=== PATIENT | female | born 1950 | race Two or more races ===

== ENCOUNTER → 2019-05-30 | Day surgery (SDC) | payer OTHER ==
[~2019-05-30] MED LIST: FENTANYL CITRATE/PF 100MCG/2 ML INJ ONE; MIDAZOLAM HCL 2 MG/2 ML VIAL ONE; OR PHACO EYE KIT ONE; PREOP PHACO EYE KIT ONE; PRESERVISION T1 EACH PO
[2019-05-30 13:30] VITALS: BP 122/68
--- OUTSIDE RECORDS SUMMARY | 2019-05-30 15:29 | XMS REPORT ---
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
--- OUTSIDE RECORDS SUMMARY | 2019-05-30 15:29 | XMS REPORT | Continuity of Care Document ---
Author Author [facility] Organization [employer] Address Unknown Phone Unavailable Care Team Providers Care Slab Tripper Name Role Phone [email or web address] Unavailable Unavailable Problems Problem Status Onset Date Classification Date Reported Comments Source Nocturia Active Problem 11/03/2018 [facility] Urine frequency Active Problem 11/03/2018 [facility] Abnormal urine Active Problem 11/03/2018 [facility] Pterygium of right eye Active Problem 05/05/2019 [facility] Encntr for general adult medical exam w/o abnormal findings Active Diagnosis 05/05/2019 [facility] Screening for colon cancer Active Diagnosis 05/05/2019 [facility] Screening for breast cancer Active Diagnosis 05/05/2019 [facility] Screening for osteoporosis Active Diagnosis 05/05/2019 [facility] Medications Medication Details Route Status Patient Instructions Ordering Provider Order Date Source Multivitamin Adult as directed Orally Active - Orally Jorge [facility] Allergies, Adverse Reactions, Alerts Substance Category Reaction Severity Reaction type Status Date Reported Comments Source N.K.D.A. Adverse Reaction Info Not Available Adverse Reaction Active 05/04/2019 [facility] Immunizations No Data Provided for This Section Results No Data Provided for This Section Pathology Reports No Data Provided for This Section Diagnostic Reports No Data Provided for This Section Consultation Notes No Data Provided for This Section Discharge Summaries No Data Provided for This Section History and Physicals No Data Provided for This Section Vital Signs Vital Sign Value Date Comments Source Weight 93.6 05/04/2019 [facility] Height 62 05/04/2019 [facility] Heart Rate 68 05/04/2019 [facility] Diastolic (mm Hg) 72 05/04/2019 [facility] Systolic (mm Hg) 98 05/04/2019 [facility] Encounters No Data Provided for This Section Procedures No Data Provided for This Section Assessment and Plan No Data Provided for This Section Plan of Care No Data Provided for This Section Social History No Data Provided for This Section Family History No Data Provided for This Section Advance Directives No Data Provided for This Section Functional Status No Data Provided for This Section
--- OUTSIDE RECORDS SUMMARY | 2019-05-30 15:29 | XMS REPORT ---
Author Author Edith Ge Organization [employer] Address Unknown Phone Unavailable Care Team Providers Care Manager Qa Name Role Phone Edith Ge CP Unavailable Allergies No Known Allergies Problems Problem Type Condition Code Onset Dates Condition Status Problem Nocturia R35.1 Active Problem Urine frequency R35.0 Active Problem Abnormal urine R82.90 Active Problem Pterygium of right eye H11.001 Active Medications No Known Medications Results No Known Results Summary Purpose [employer] Submission
== END | disposition home or self-care (01) ==
LOC: OR 15:26
PROVIDERS: ATTEND Ophthalmology
DX: H25.12 Age-related nuclear cataract, left eye (principal); Z86.2 Personal history of diseases of the blood and blood-forming organs and certain disorders involving the immune mechanism
CPT/HCPCS: 66984; J2250; J3010; V2632

== ENCOUNTER → 2019-06-05 | Day surgery (SDC) | payer OTHER ==
--- OUTSIDE RECORDS SUMMARY | 2019-06-05 05:24 | XMS REPORT | Continuity of Care Document ---
Author Author [employer] Organization [employer] Address Unknown Phone Unavailable Care Team Providers Care Quality Control Assessor Name Role Phone [employer] Unavailable Unavailable Problems Problem Status [...]
[2019-06-05 08:15] VITALS: BP 117/66
== END | disposition home or self-care (01) ==
LOC: OR 05:21
PROVIDERS: ATTEND Ophthalmology
DX: H25.11 Age-related nuclear cataract, right eye (principal)
CPT/HCPCS: 66984; J2250; J3010; V2632

== ENCOUNTER 2020-07-26 17:29 | Day surgery (SDC) | payer OTHER ==
[~2020-07-26] VITALS: Ht 157.5 cm; Wt 59.0 kg
[~2020-07-26 17:29] MED LIST changes: +DEXAMETHASONE SOD PHOS INJ 4 MG/ML VIAL ONE; -FENTANYL CITRATE/PF 100MCG/2 ML INJ ONE; +KETOROLAC TROMETHAMINE 30 MG/ML VIAL ONE; +LIDOCAINE HCL 2% LOCAL INJ 5 ML SDV VIAL INJ ONE; -MIDAZOLAM HCL 2 MG/2 ML VIAL ONE; +ONDANSETRON HCL INJ 2MG/ML 2ML 2 MG/ML VIAL ONE; -OR PHACO EYE KIT ONE; -PREOP PHACO EYE KIT ONE; +PROPOFOL IV EMULSION 10 MG/ML 20 ML VIAL ONE; +ROCURONIUM BROMIDE 10 MG/ML 5ML VIAL IV ONE; +SEVOFLURANE INHAL SOLN 250 ML PEN BTL ONE; +SUCCINYLCHOLINE CHLORIDE 20 MG/ML 10ML VIAL ONE
--- NOTE | 2020-07-26 18:32 | Emergency Department Note ---
History of Present Illnes History of Present Illness Chief Complaint: General Medicine Complaints History of Present Illness This is a 69 year old Other female Chief Complaint Comment PT CAME IN FOR C/O THROAT PAIN, PT STATES THAT SHE FEELS A "FISH BONE" IS STUCK IN HER THROAT, PT STATES THAT SHE WAS EATING FISH SOUP AROUND 1330. Historian: Patient Arrival Mode: Car Technology Infusion Specialist Required: No Onset (how long ago): hour(s) (5) Location: Throat Quality: Sharp Radiation: Reports non-radiation Severity: mild Onset quality: sudden Duration (how long): day(s) (5) Timing of current episode: constant Progression: unchanged Chronicity: new Context: Denies recent illness, Denies recent surgery Relieving factors: none Exacerbating factors: none Associated symptoms: Reports denies other symptoms Treatments prior to arrival: none Past Medical/Family History Physician Review I have reviewed the patient's past medical and family history. Any updates have been documented here. Past Medical History Recent Fever: No Clinical Suspicion of Infectio: No New/Unexplained Change in Ment: No Past Medical History: None Past Surgical History: None Other Any Pre-Existing Lines (PICC,: Yes Review of Systems Review of Systems Constitutional: Reports no symptoms EENTM: Reports as per HPI Cardiovascular: Reports no symptoms Respiratory: Reports no symptoms Gastrointestinal: Reports as per HPI Genitourinary: Reports no symptoms Musculoskeletal: Reports no symptoms Integumentary: Reports no symptoms Neurological: Reports no symptoms Psychological: Reports no symptoms Endocrine: Reports no symptoms Hematological/Lymphatic: Reports no symptoms Physical Exam Related Data Allergies: Coded Allergies: No Known Allergies (Unverified , 05/28/19) Triage Vital Signs Vital Signs Date Time Temp Pulse Resp B/P (MAP) Pulse Ox O2 Delivery O2 Flow Rate FiO2 07/26/20 17:41 98.1 82 18 163/76 100 Room Air Vital signs reviewed: Yes Physical Exam CONSTITUTIONAL Constitutional: Present well-developed, Present well-nourished HENT HENT: Present normocephalic, Present atraumatic, Present oropharynx clear/moist, Present nose normal, Present other (Tolerating secretiong, able to swallow liquids) HENT L/R: Present left ext ear normal, Present right ext ear normal EYES Eyes: Reports PERRL, Reports conjunctivae normal NECK Neck: Present ROM normal PULMONARY Pulmonary: Present effort normal, Present breath sounds normal CARDIOVASCULAR Cardiovascular: Present regular rhythm, Present heart sounds normal, Present capillary refill normal, Present normal rate GASTROINTESTINAL Abdominal: Present soft, Present nontender, Present bowel sounds normal GENITOURINARY Genitourinary: Present exam deferred SKIN Skin: Present warm, Present dry MUSCULOSKELETAL Musculoskeletal: Present ROM normal NEUROLOGICAL Neurological: Present alert, Present oriented x 3, Present no gross motor or sensory deficits PSYCHOLOGICAL Psychological: Present mood/affect normal, Present judgement normal Results Imaging Imaging results reviewed: Yes Procedures 12 Lead ECG Interpretation ECG Interpretation : Date: Jul 26, 2020 Rhythm: sinus rhythm Rate: normal QRS axis: normal ST segments normal: Yes T waves normal: Yes Clinical Impression: non-specific ECG Assessment & Plan Medical Decision Making MDM 69-year-old female presents for feelings of fish bone stuck in her esophagus. Examination shows overall well-appearing female in no acute distress, vital signs stable, within limits. CT neck shows no esophageal foreign body but does note a radio opaque 2 mm likely foreign body but in vocal cords. Call doctor Benita Ross for scope to which he agrees. Patient is appropriate for transfer to OR. Reassessment Reassessment time: 18:32 Reassessment Well appearing, NAD Assessment & Plan Final Impression: (1) Inhaled foreign object Depart Disposition: ADMITTED Last Vital Signs Date Time Temp Pulse Resp B/P (MAP) Pulse Ox O2 Delivery O2 Flow Rate FiO2 07/26/20 17:41 98.1 82 18 163/76 100 Room Air Home Meds Reported Medications Beta Carotene (PRESERVISION TABLET) 1 Each Tab, 1 TAB PO BID 05/28/19 NICKY WEST MD Jul 26, 2020 18:32
--- NOTE | 2020-07-26 20:44 | Diagnostic Imaging Report ---
History: Throat pain, rule out foreign body. Possible fishbone stuck in her throat. Comparison studies: None Technique: Axial images were obtained from the skull base to the thoracic inlet. Coronal and sagittal images reconstructed from the axial data. Dose modulation, iterative reconstruction, and/or weight based adjustment of the mA/kV was utilized to reduce the radiation dose to as low as reasonably achievable. Intravenous contrast: None Findings: Evaluation of the neck is limited due to the absence of intravenous contrast. In spite of this limitation, Soft tissues: 2 mm thin, linear radiopaque density in the anterior commissure of the larynx, just posterior to the thyroid cartilage may either represent radiopaque foreign body or volume average artifact from focal calcification of the thyroid cartilage. Sclerosis of the adenoids and cricoid, are physiological. Lymph nodes: No radiographically significant adenopathy. Vessels: Cannot evaluate. Glands (thyroid, parotid and submandibular): Normal in size and symmetric. No masses. Orbits: No abnormalities. Paranasal sinuses: Clear. Temporal bones: No abnormalities. Skull base and facial bones: Intact. Cervical spine: No significant abnormality. Incidental finding: Nonspecific few nodular and tree-in-bud airspace opacities in right upper lobe. IMPRESSION: A 2 mm thin, linear radiopaque density in the anterior commissure of larynx may represent radiopaque foreign body or an artifact from adjacent calcification of the thyroid cartilage. Consider direct scope evaluation and ENT consultation. Findings were informed to ER physician Dr. Kate by phone at 8:35 PM on 07/26/2020. Signed by: Dr. Rachelle Frost M.D. on 07/26/2020 8:41 PM
[2020-07-26] MEDS ORDERED: FENTANYL CITRATE/PF 100MCG/2 ML INJ IV ONE (21:00)
[2020-07-26 21:30] LABS: BASOPHILS % 0.5 % (0.0-1.0); EOSINOPHILS % 0.1 % (0.0-6.0); HEMATOCRIT 32.9 % (34.2-44.1); HEMOGLOBIN 10.2 g/dL (12.0-16.0); LYMPHOCYTES # (AUTO) 1.9 (1.0-3.2); LYMPHOCYTES % 25.7 % (18.0-39.1); MEAN CORPUSCULAR HEMOGLOBIN 19.7 pg (28-32); MEAN CORPUSCULAR VOLUME 63.4 fL (81-99); MONOCYTES # (AUTO) 0.4 (0.2-0.8); NEUTROPHILS % 68.3 % (38.7-80.0); PLATELET COUNT 407 x10e3/uL (140-360); RED BLOOD COUNT 5.19 x10e6/uL (3.6-5.1); RED CELL DISTRIBUTION WIDTH 16.2 % (11.7-14.4)
[2020-07-26 21:46] LABS: INR 0.9; PROTHROMBIN TIME 12.6 seconds (11.9-14.5)
[2020-07-26 21:47] LABS: PARTIAL THROMBOPLASTIN TIME 28.3 seconds (23.8-35.5)
[2020-07-26 21:55] LABS: ALANINE AMINOTRANSFERASE 9 IU/L (0-55); ALBUMIN 4.6 g/dL (3.5-5.0); ALBUMIN/GLOBULIN RATIO 1.4 (0.8-2.0); ALKALINE PHOSPHATASE 125 IU/L (40-150); ANION GAP 15.2 mmol/L (8-16); BLOOD UREA NITROGEN 13 mg/dL (7-26); BUN/CREATININE RATIO 16 (6-25); CALCIUM 9.3 mg/dL (8.4-10.2); CARBON DIOXIDE 25 mmol/L (22-29); CHLORIDE 104 mmol/L (98-107); CREATININE, SERUM 0.79 mg/dL (0.57-1.11); EST GLOMERULAR FILTRATION RATE > 60 ML/MIN (60-); GLUCOSE 95 mg/dL (74-118); POTASSIUM 4.2 mmol/L (3.5-5.1); SODIUM 140 mmol/L (136-145)
--- NOTE | 2020-07-26 21:57 | NUR ---
OR TEAM HERE AT THIS TIME TO TAKE PT TO SURGERY.
--- NOTE | 2020-07-26 22:46 | Diagnostic Imaging Report ---
EXAM: CT Chest WITHOUT contrast INDICATION: Swallowed chicken bone COMPARISON: None TECHNIQUE: Chest was scanned utilizing a multidetector helical scanner from the lung apex through the level of the adrenal glands without administration of IV contrast. Absence of intravenous contrast decreases sensitivity for detection of lymphadenopathy and vascular pathology. Coronal and sagittal reformations were obtained. Routine protocol was performed. IV CONTRAST: None COMPLICATIONS: None FINDINGS: Please see separate report for neck findings. 2.3 cm curvilinear hyperdensity traverses the esophagus at the level of T3 in the anterior posterior plane, possibly related to a fragment of ingested chicken bone. LUNGS AND AIRWAYS: Patchy and tree-in-bud nodularity in the right middle lobe. Scattered peripheral tree-in-bud nodularity in the right upper and lower lobes. PLEURA: The pleural spaces are clear. HEART AND MEDIASTINUM: The thyroid gland isThe lungs are unremarkable. Airways are normal. normal. No mediastinal, hilar or axillary lymphadenopathy. The heart is normal in size. There is no pericardial effusion. No pneumomediastinum. UPPER ABDOMEN: Unremarkable. BONES: There are degenerative changes in the thoracic spine. IMPRESSION: 1. 2.3 cm curvilinear density traversing the esophagus in the AP dimension at the level of T3 concerning for ingested chicken bone. Endoscopy is recommended for further evaluation. Please see separate CT neck report. 2. Scattered tree-in-bud nodularity in the right lung with predominance in the right middle lobe concerning for infectious/inflammatory process including chronic atypical infection such MAC. Signed by: Jeancarlos Amador MD on 07/26/2020 10:43 PM
[2020-07-26 23:08] VITALS: BP 131/84
--- NOTE | 2020-07-27 00:06 | Operative Report ---
DATE OF PROCEDURE: 07/26/2020 SURGEON: Andrzej Ross MD PROCEDURE PERFORMED: Esophagogastroduodenoscopy with foreign body removal. INDICATION FOR PROCEDURE: Fishbone in the throat. MEDICATIONS: The patient was done under general endotracheal anesthesia, please see anesthesiologist's note. PROCEDURE IN DETAIL: With the patient in the left lateral decubitus position and after adequate induction of general endotracheal anesthesia, a flexible fiberoptic Olympus gastroscope was introduced into the oropharynx and no foreign body was noted. The scope was then and advanced into the esophagus and an approximately 1.8 cm fishbone was noted lodged in the cervical esophagus. I attempted to remove it with the biopsy forceps, I was unsuccessful as it continued to get trapped into the upper esophageal sphincter. I repeat as we had difficulty traversing the upper esophageal sphincter. It was gently pushed back into the stomach and then a Park Net was introduced and it was removed safely with a Park Net. The scope was then reintroduced into the esophagus, which appeared to be within normal limits. There was some mild patchy erythema noted in the antrum. The pylorus was of normal contour and shape, was intubated with ease and the scope was advanced all the way to the second portion of the duodenum. The scope was then withdrawn slowly. Mucosa overlying the proximal second portion and the duodenal bulb was grossly within normal limits. The scope was then withdrawn back into the stomach and retroflexed. Mucosa overlying the fundus and cardia appeared to be within normal limits. The scope was then straightened out. It was subsequently withdrawn. The patient tolerated the procedure well. IMPRESSION: 1. Fishbone lodged in the esophagus, removed per Park Net. 2. Gastritis, mild, antrum. The patient tolerated the procedure well. Andrzej Ross [place] [facility] [place][id number] cc: Naila Pickens MD
--- OUTSIDE RECORDS SUMMARY | 2020-08-02 14:28 | XMS REPORT | Continuity of Care Document ---
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 Name Role Phone [employer] Unavailable Un available Problems Problem Status Onset Date Classification Date Reported Comments Source Nocturia Active Problem 11/03/2018 [facility] Urine frequency Active Problem 11/03/2018 [facility] Abnormal urine Active Problem 11/03/2018 [facility] Pterygium of right eye Active Problem 07/25/2019 [facility] Encntr for general adult medical exam w/ o abnormal findings Active Diag nosis 05/05/2019 [facility] Screening for colon cancer Act wilfred Diagnosis 0 05/05/2019 [facility] Screening for breast cancer Ac tive Diagnosis 0 05/05/2019 [facility] Screening for osteoporosis Act wilfred Diagnosis 0 05/05/2019 [facility] Herpes zoster without complication Active Diagnosis 0 07/25/2019 [facility] Medications Medication Details Route Status Patient Instructions Ordering Provider Order Date Source Multivitamin Adult as directed Orally Active - Orally [facility] Allergies, Adverse Reactions, Alerts Substance Category Reaction Severity Reaction type Status Date Reported Comments Source N.K.D.A. Adverse Reaction Info Not Available Adverse Reaction 07/24/2019 [facility] Immunizations [...] Vital Sign Value Date Comments Source Weight 91 0 07/24/2019 [facility] Height 62 0 07/24/2019 [facility] Heart Rate 81 07/24/2019 [facility] Diastolic (mm Hg) 90 07/24/2019 [facility] Systolic (mm Hg) 128 07/24/2019 [facility] Weight 93.6 05/04/2019 [facility] Height 62 0 05/04/2019 [facility] [...]
== END 2020-07-26 23:20 | disposition home or self-care (01) ==
LOC: ER 17:38 → OR 22:47
PROVIDERS: ATTEND Internal Medicine Gastroenterology
DX: T18.128A Food in esophagus causing other injury, initial encounter (principal); K29.70 Gastritis, unspecified, without bleeding; X58.XXXA Exposure to other specified factors, initial encounter; Z11.59 Encounter for screening for other viral diseases
CPT/HCPCS: 36415; 43247; 70490; 71250; 80053; 85025; 85610; 85730; 93005; 99284; J0330; J1100; J1885; J2001; J2405; J2704; U0002; 43239; J3010

== ENCOUNTER → 2020-11-13 | Outpatient (CLI) | payer OTHER ==
[~2020-11-13] MED LIST changes: +COVID-19 VACC, MRNA(MODERNA)/PF 100 MCG/0.5 ML VIAL IM ONE; -DEXAMETHASONE SOD PHOS INJ 4 MG/ML VIAL ONE; -KETOROLAC TROMETHAMINE 30 MG/ML VIAL ONE; -LIDOCAINE HCL 2% LOCAL INJ 5 ML SDV VIAL INJ ONE; -ONDANSETRON HCL INJ 2MG/ML 2ML 2 MG/ML VIAL ONE; -PROPOFOL IV EMULSION 10 MG/ML 20 ML VIAL ONE; -ROCURONIUM BROMIDE 10 MG/ML 5ML VIAL IV ONE; -SEVOFLURANE INHAL SOLN 250 ML PEN BTL ONE; -SUCCINYLCHOLINE CHLORIDE 20 MG/ML 10ML VIAL ONE
== END ==
LOC: VACCPMC 17:30
DX: Z23 Encounter for immunization (principal); Z20.822 Contact with and (suspected) exposure to COVID-19

== ENCOUNTER → 2020-12-13 | Outpatient (CLI) | payer OTHER | END | DRG 951 | LOC: VACCPMC 07:29 | DX: Z23 Encounter for immunization (principal); Z20.822 Contact with and (suspected) exposure to COVID-19 | CPT/HCPCS: 0012A; 91301 ==